=== PATIENT | female | born 1990 | race Hispanic/Latino ===

== ENCOUNTER 2021-06-14 12:25 | Emergency (ER) | payer OTHER ==
[~2021-06-14] VITALS: Ht 167.6 cm; Wt 110.2 kg
[2021-06-14] MEDS ORDERED: ONDANSETRON HCL INJ 2MG/ML 2ML 2 MG/ML VIAL IV STA (13:34)
[2021-06-14] MEDS ORDERED: MORPHINE SULFATE INJ 4 MG/ML INJ 1ML IV STA (13:34)
[2021-06-14] MEDS ORDERED: SODIUM CHLORIDE 0.9% 1000ML 1,000 ML IV STA (13:34)
[2021-06-14] MEDS ORDERED: IOPAMIDOL 370 MG/ML 200 ML INFUS..BTL INJ ONE (13:57)
[2021-06-14] MEDS ORDERED: SODIUM CHLORIDE 0.9% 50ML 50 ML ONE (13:57)
[2021-06-14] MEDS ORDERED: SODIUM CHLORIDE 0.9% 1000ML 1,000 ML ONE (14:31)
[2021-06-14] MEDS ORDERED: ONDANSETRON HCL INJ 2MG/ML 2ML 2 MG/ML VIAL ONE (14:31)
[2021-06-14] MEDS ORDERED: KETOROLAC TROMETHAMINE 30 MG/ML VIAL ONE (14:31)
[2021-06-14] MEDS ORDERED: KETOROLAC TROMETHAMINE 30 MG/ML VIAL IV STA (14:32)
[2021-06-14 15:32] VITALS: BP 127/79
[2021-06-14] MEDS ORDERED: PEPCID20 MG PO (15:33)
[2021-06-14] MEDS ORDERED: ONDANSETRON ODT4 MG PO (15:33)
== END 2021-06-14 15:38 | disposition home or self-care (01) ==
LOC: FSED 14:25
DX: R10.30 Lower abdominal pain, unspecified (principal); R11.2 Nausea with vomiting, unspecified
CPT/HCPCS: 74177; 80048; 80076; 81003; 81025; 85025; 99284; J1885; J2405; J7030; Q9967

== ENCOUNTER 2021-08-15 13:59 | Emergency (ER) | payer OTHER ==
[~2021-08-15] VITALS: Ht 167.6 cm; Wt 112.9 kg
[~2021-08-15 13:59] MED LIST: ONDANSETRON ODT4 MG PO; PEPCID20 MG PO
[2021-08-15] MEDS ORDERED: CEFTRIAXONE 1 GM VIAL IM ONE (15:45)
[2021-08-15] MEDS ORDERED: SODIUM CHLORIDE 0.9% 50ML 50 ML ONE (16:02)
[2021-08-15] MEDS ORDERED: CEFTRIAXONE 1 GM VIAL ONE (16:02)
[2021-08-15] MEDS ORDERED: LIDOCAINE HCL 1% LOCAL INJ 20 ML VIAL ONE (16:16)
[2021-08-15] MEDS ORDERED: PYRIDIUM200 MG PO (16:18)
[2021-08-15] MEDS ORDERED: CEFDINIR300 MG PO (16:18)
== END 2021-08-15 16:35 | disposition home or self-care (01) ==
LOC: FSED 14:10
DX: R30.0 Dysuria (principal); N30.00 Acute cystitis without hematuria; F17.210 Nicotine dependence, cigarettes, uncomplicated
CPT/HCPCS: 99283; J0696; J2001

== ENCOUNTER 2022-04-09 09:55 | Emergency (ER) | payer OTHER ==
[~2022-04-09] VITALS: Ht 167.6 cm; Wt 106.4 kg
[~2022-04-09 09:55] MED LIST changes: +CEFDINIR300 MG PO; +PYRIDIUM200 MG PO
[2022-04-09] MEDS ORDERED: KETOROLAC TROMETHAMINE 30 MG/ML VIAL IV STA (10:20)
[2022-04-09] MEDS ORDERED: KETOROLAC TROMETHAMINE 30 MG/ML VIAL ONE (10:54)
[2022-04-09] MEDS ORDERED: IOPAMIDOL 370 MG/ML 100 ML INFUS..BTL INJ ONE (11:46)
[2022-04-09] MEDS ORDERED: CYCLOBENZAPRINE HCL 10 MG TAB PO ONE (12:15)
[2022-04-09] MEDS ORDERED: TRAMADOL HCL 50 MG TAB PO ONE (12:15)
[2022-04-09] MEDS ORDERED: CYCLOBENZAPRINE HCL 10 MG TAB ONE (12:25)
[2022-04-09] MEDS ORDERED: TRAMADOL HCL 50 MG TAB ONE (12:28)
[2022-04-09] MEDS ORDERED: CYCLOBENZAPRINE5 MG PO (13:05)
== END 2022-04-09 13:30 | disposition home or self-care (01) ==
LOC: FSED 10:15
DX: R07.89 Other chest pain (principal); M25.512 Pain in left shoulder; F17.210 Nicotine dependence, cigarettes, uncomplicated
CPT/HCPCS: 71260; 80053; 81025; 82553; 84484; 85025; 96374; 99284; J1885; Q9967

== ENCOUNTER 2022-08-07 11:20 | Emergency (ER) | payer OTHER ==
[~2022-08-07] VITALS: Ht 160 cm; Wt 108.0 kg
[~2022-08-07 11:20] MED LIST changes: +CYCLOBENZAPRINE5 MG PO
[2022-08-07] MEDS ORDERED: SODIUM CHLORIDE 0.9% 500ML 500 ML IV ONE (12:00)
[2022-08-07] MEDS ORDERED: DIPHENHYDRAMINE HCL INJ 50 MG/ML VIAL IV ONE (12:00)
[2022-08-07] MEDS ORDERED: FAMOTIDINE 20 MG/2 ML VIAL IV STA (12:00)
[2022-08-07] MEDS ORDERED: METHYLPREDNISOLONE SOD SUCC 125 MG/2ML VIAL IV ONE (12:00)
[2022-08-07] MEDS ORDERED: DIPHENHYDRAMINE HCL INJ 50 MG/ML VIAL ONE (12:24)
[2022-08-07] MEDS ORDERED: FAMOTIDINE 20 MG/2 ML VIAL IV ONE (12:24)
[2022-08-07] MEDS ORDERED: SODIUM CHLORIDE 0.9% 500ML 500 ML ONE (12:24)
[2022-08-07] MEDS ORDERED: METHYLPREDNISOLONE SOD SUCC 125 MG/2ML VIAL ONE (12:24)
[2022-08-07] MEDS ORDERED: PREDNISONE20 MG PO (13:03)
[2022-08-07] MEDS ORDERED: EPINEPHRIN0.3 MG/0.3 IM (13:05)
== END 2022-08-07 13:29 | disposition home or self-care (01) ==
LOC: FSED 11:31
DX: R06.7 Sneezing (principal); M79.89 Other specified soft tissue disorders; T39.395A Adverse effect of other nonsteroidal anti-inflammatory drugs [NSAID], initial encounter; Y92.019 Unspecified place in single-family (private) house as the place of occurrence of the external cause; I10 Essential (primary) hypertension
CPT/HCPCS: 81003; 81025; 99283; J1200; J2930; J7040

== ENCOUNTER 2022-10-01 19:41 | Emergency (ER) | payer OTHER ==
[~2022-10-01] VITALS: Ht 167.6 cm; Wt 108.0 kg
[~2022-10-01 19:41] MED LIST changes: +EPINEPHRIN0.3 MG/0.3 IM; +PREDNISONE20 MG PO
[2022-10-01] MEDS ORDERED: BROMPHENIR-PSE118 ML PO (21:13)
[2022-10-01] MEDS ORDERED: ZITHROMAX250 MG PO (21:13)
[2022-10-01] MEDS ORDERED: CEFTRIAXONE 1 GM VIAL IM ONE (21:15)
[2022-10-01] MEDS ORDERED: DEXAMETHASONE SOD PHOS 10 MG/1 ML VIAL IM ONE (21:15)
[2022-10-01] MEDS ORDERED: DEXAMETHASONE SOD PHOS INJ 4 MG/ML SDV ONE (21:55)
[2022-10-01] MEDS ORDERED: LIDOCAINE HCL 1% LOCAL INJ 20 ML VIAL ONE (21:55)
[2022-10-01] MEDS ORDERED: CEFTRIAXONE 1 GM VIAL ONE (21:55)
[2022-10-01 22:48] VITALS: BP 141/77
== END 2022-10-01 22:44 | disposition home or self-care (01) ==
LOC: FSED 19:48
DX: R05.9 Cough, unspecified (principal); J20.9 Acute bronchitis, unspecified; J04.0 Acute laryngitis; F17.210 Nicotine dependence, cigarettes, uncomplicated
CPT/HCPCS: 83518; 87400; 96372; 99282; J0696; J1100; J2001